=== PATIENT | male | born 1965 | race Caucasian/White ===

== ENCOUNTER 2020-11-28 14:02 | Emergency (ER) | payer BC ==
[2020-11-28] MEDS ORDERED: Lactated Ringers 1,000 ML IV ONE (14:41)
[2020-11-28] MEDS ORDERED: Ondansetron 4 MG/2 ML SDV IVPUSH ONE (14:41)
[2020-11-28] MEDS ORDERED: Meclizine 25 MG Tab PO ONE (14:42)
--- NOTE | 2020-11-28 14:51 | EDM.PDOC ---
ED HPI GENERAL MEDICAL PROBLEM - General Chief Complaint: ENT Problem Stated Complaint: THROWING UP,DIZZY Time Seen by Provider: 11/28/20 14:35 Source of Information: Reports: Patient, RN History Limitations: Reports: Other (no old records) - History of Present Illness INITIAL COMMENTS - FREE TEXT/NARRATIVE: 55 yo male here with about 4 hrs of vertigo. Has vomited about "30" times today. No fever or [place]. Has had this in the past tx'd effectively with Nya's maneuvers. Forgot how to do them. No hematemesis. Has a resort locally so here a lot, otherwise lives in [place]. Sx's worse when he opens his eyes. Onset: Today, Sudden Onset Date: 11/28/20 Onset Time: 11:00 Duration: Hour(s): (4), Waxing/Waning Location: Reports: Head Quality: Reports: Other (no pain) Severity: Severe Improves with: Reports: Rest (with eyes closed) Worsens with: Reports: Movement (of head and eye opening) Context: Reports: Other (See HPI) Associated Symptoms: Reports: Diaphoresis, Nausea/Vomiting. Denies: Fever/Chills, Headaches, Syncope Treatments SR. DIRECTOR PRODUCT MANAGEMENT: Reports: Other (see below) (none) - Related Data Allergies Allergy/AdvReac Type Severity Reaction Status Date / Time No Known Allergies Allergy Verified 11/28/20 14:31 Home Meds: Home Meds NK [No Known Home Meds] 11/28/20 [History] Past Medical History HEENT History: Reports: Other (See Below) Other HEENT History: previous benign positiional vertigo - Infectious Disease History Infectious Disease History: Reports: Chicken Pox, Mumps Social & Family History - Tobacco Use Tobacco Use Status *Q: Never Tobacco User - Caffeine Use Caffeine Use: Reports: Coffee - Recreational Drug Use Recreational Drug Use: No ED ROS GENERAL - Review of Systems Review Of Systems: See Below Constitutional: Reports: No Symptoms HEENT: Reports: Vertigo Respiratory: Reports: No Symptoms Cardiovascular: Reports: No Symptoms GI/Abdominal: Reports: Nausea, Vomiting. Denies: Diarrhea Musculoskeletal: Reports: No Symptoms Skin: Reports: Diaphoresis Neurological: Reports: Dizziness. Denies: Headache ED EXAM, DIZZINESS - Physical Exam Exam: See Below Exam Limited By: No Limitations General Appearance: Alert, WD/WN, Mild Distress Eye Exam: Bilateral Eye: Nystagmus, PERRL Nystagmus: constant Ears: Normal External Exam, Normal Canal, Hearing Grossly Normal, Normal TMs Nose: Normal Inspection, No Blood Throat/Mouth: Normal Inspection, Normal Lips, Normal Oropharynx, Normal Voice, No Airway Compromise Head Exam: Atraumatic, Normocephalic Neck: Normal Inspection, Non-Tender Respiratory/Chest: No Respiratory Distress, Lungs Clear, Normal Breath Sounds, Chest Non-Tender Cardiovascular: Regular Rate, Rhythm, No Edema GI/Abdominal: Normal Bowel Sounds, Soft, Non-Tender, No Distention. No: D istended Neurological: Alert, Normal Mood/Affect, CN II-XII Intact, No Motor/Sensory Deficits, Oriented x 3 Back Exam: Normal Inspection Extremities: Normal Inspection, Normal Range of Motion, Non-Tender, No Pedal Edema Psychiatric: Normal Affect, Normal Mood Skin Exam: Warm, Dry, Intact, Normal Color, No Rash Course - Vital Signs Last Recorded V/S: Last Vital Signs Temp 35.1 C L 11/28/20 14:28 Pulse 55 L 11/28/20 16:04 Resp 14 11/28/20 16:04 BP 165/73 H 11/28/20 16:04 Pulse Ox 95 11/28/20 16:04 - Orders/Labs/Meds Meds: Medications Discontinued Medications Generic Name Dose Route Start Last Admin Trade Name Antoninoq PRN Reason Stop Dose Admin Diphenhydramine HCl 50 mg 11/28/20 15:44 11/28/20 15:58 Diphenhydramine 50 Mg/Ml Sdv IVPUSH 11/28/20 15:45 50 mg ONETIME ONE Administration Lactated Ringer's 1,000 mls @ 1,000 mls/hr 11/28/20 14:41 11/28/20 15:08 Ringers, Lactated IV 11/28/20 15:40 1,000 mls/hr BOLUS ONE Administration Meclizine HCl 25 mg 11/28/20 14:42 11/28/20 14:59 Meclizine 25 Mg Tab PO 11/28/20 14:43 25 mg ONETIME ONE Administration Ondansetron HCl 4 mg 11/28/20 14:41 11/28/20 15:09 Ondansetron 4 Mg/2 Ml Sdv IVPUSH 11/28/20 14:42 4 mg ONETIME ONE Administration - Re-Assessments/Exams Free Text/Narrative Re-Assessment/Exam: 11/28/20 15:44 Improved, but not resolved after our first round of tx, will give IV Benedryl Free Text/Narrative Re-Assessment/Exam: 11/28/20 16:45 still some sx's, but is feeling a lot better. Departure - Departure Time of Disposition: 16:50 Disposition: Home, Self-Care 01 Condition: Fair Clinical Impression: BPV (benign positional vertigo) Qualifiers: Laterality: left Qualified Code(s): H81.12 - Benign paroxysmal vertigo, left ear - Discharge Information *PRESCRIPTION DRUG MONITORING PROGRAM REVIEWED*: Not Applicable *COPY OF PRESCRIPTION DRUG MONITORING REPORT IN PATIENT ROSAURA: Not Applicable Instructions: How to Perform the Nya Maneuver, Benign Positional Vertigo Referrals: PCP,None [Primary Care Provider] - Forms: ED Department Discharge Additional Instructions: Use Zofran ODT as directed for nausea control. Use Meclizine 25 mg every 6 hrs for vertigo. Add diphenhydramine 25-50 mg every 4 hrs for added vertigo relief. Recheck as needed. No driving today. Sepsis Event Note (ED) - Evaluation Sepsis Screening Result: No Definite Risk - Focused Exam Vital Signs: Vital Signs Temp Pulse Resp BP Pulse Ox 11/28/20 16:04 55 L 14 165/73 H 95 11/28/20 14:28 35.1 C L 52 L 16 155/71 H 97
[2020-11-28] MEDS ORDERED: diphenhydrAMINE 50 MG/ML SDV IVPUSH ONE (15:44)
== END 2020-11-28 17:20 | disposition home or self-care (01) ==
LOC: JP.ED 14:02
DX: H81.12 Benign paroxysmal vertigo, left ear (principal)
CPT/HCPCS: 96374; 96375; 99283; A9270; J1200; J2405; J7120